=== PATIENT | female | born 1980 | race Caucasian/White ===

== ENCOUNTER 2017-03-15 00:30 | Emergency (ER) | payer MEDICARE, OTHER ==
--- NOTE | ~2017-03-15 | EKG ---
PATIENT: MICHELLE WALTON UNIT #: [id number] Ventricular Rate: 101 BPM Atrial Rate: 101 BPM P-R Interval: 150 ms QRS Duration: 92 ms Q-T Interval: 338 ms QTC Calculation(Bezet): 438 ms P [place]: 61 degrees Calculated R [place]: 72 degrees Calculated T [place]: 60 degrees Diagnosis Line: Sinus tachycardia Diagnosis Line: Otherwise normal ECG Diagnosis Line: When compared with ECG of 22-JUL-2016 21:41, Diagnosis Line: No significant change was found Diagnosis Line: Confirmed by LYNETTE RICMHOND MD ([id number]) on 03/15/2017 Diagnosis Line: 10:06:38 AM INTERPRETING MD: BASILIO BARRETT
== END 2017-03-15 01:45 | disposition home or self-care (01) ==
LOC: CED 00:30
DX: M43.6 Torticollis (principal); F41.9 Anxiety disorder, unspecified; F32.9 Major depressive disorder, single episode, unspecified; Z86.73 Personal history of transient ischemic attack (TIA), and cerebral infarction without residual deficits; Z85.41 Personal history of malignant neoplasm of cervix uteri; F17.210 Nicotine dependence, cigarettes, uncomplicated; Z98.51 Tubal ligation status; Z88.1 Allergy status to other antibiotic agents; Z88.8 Allergy status to other drugs, medicaments and biological substances; Z91.040 Latex allergy status
CPT/HCPCS: 93005; 96372; 99283; J1885; J3360